=== PATIENT | male | born 1975 | race Hispanic/Latino ===

== ENCOUNTER 2024-11-18 12:06 | Inpatient (IN) | payer OTHER ==
[~2024-11-18] VITALS: Ht 180.3 cm; Wt 92.5 kg
[2024-11-18 14:07] LABS: BASOPHILS % 0.3 % (0.0-1.0); EOSINOPHILS % 0.4 % (0.0-6.0); LYMPHOCYTES % 6.0 % (18.0-39.1); MONOCYTES % 3.7 % (4.4-11.3); NEUTROPHILS % 87.4 % (38.7-80.0); RED CELL DISTRIBUTION WIDTH 11.9 % (11.7-14.4)
[2024-11-18 14:29] LABS: INR 1.0
[2024-11-18 14:37] LABS: EST GLOMERULAR FILTRATION RATE 53.0 ML/MIN (>=60)
[2024-11-18] MEDS: SODIUM CHLORIDE 0.9% 1000ML 1,000 ML IV STA ×2 (15:23)
[2024-11-18] MEDS: Vancomycin IV 1 GM in SODIUM CHLORIDE 0.9% 250ML 250 ML IV ONE (15:24)
[2024-11-18 15:30] LABS: LYMPHOCYTES % (MANUAL) 6 % (19-48); MONOCYTES % (MANUAL) 2 % (3.4-9.0); MYELOCYTES % (MANUAL) 1 % (0-0); NEUTROPHILS % (MANUAL) 91 % (40-74); PLATELET ESTIMATE ADEQUATE; PLATELET MORPHOLOGY COMMENT NORMAL; RBC MORPHOLOGY COMMENT NORMAL
[2024-11-18] MEDS: KETOROLAC TROMETHAMINE 30 MG/ML VIAL IV STA (15:38)
[2024-11-18] MEDS: ENOXAPARIN SOD INJ 40 MG/0.4 ML SYR SC SCH (17:00)
[2024-11-18] MEDS ORDERED: POTASSIUM CHLORIDE 20 MEQ TAB CR PO PRN (17:00)
[2024-11-18] MEDS ORDERED: HYDRALAZINE HCL 20 MG/ML VIAL IV PRN (17:00)
[2024-11-18] MEDS ORDERED: LIDOCAINE 4% PATCH TP PRN (17:00)
[2024-11-18] MEDS ORDERED: MELATONIN 5 MG TABLET PO PRN (17:00)
[2024-11-18] MEDS ORDERED: SIMETHICONE 80 MG CHEW PO PRN (17:00)
[2024-11-18] MEDS ORDERED: ALBUTEROL/IPRATROPIUM 3 ML NEB NEB PRN (17:00)
[2024-11-18] MEDS ORDERED: DIPHENHYDRAMINE HCL 25 MG CAP PO PRN (17:00)
[2024-11-18] MEDS ORDERED: DOCUSATE SODIUM 100 MG CAP PO PRN (17:00)
[2024-11-18] MEDS ORDERED: DEXTROSE 50% SYRINGE 50 ML IV PRN (17:00)
[2024-11-18] MEDS ORDERED: ONDANSETRON HCL INJ 2MG/ML 2ML 2 MG/ML VIAL IV PRN ×2 (17:00)
[2024-11-18 18:14] LABS: LEUKOCYTE ESTERASE ,URINE NEGATIVE (NEGATIVE)
[2024-11-18 18:15] LABS: PROTEIN,URINE DIPSTICK 1+ (NEGATIVE); URINE UROBILINOGEN 0.2 mg/dL (0.2 - 1)
[2024-11-18] MEDS: Doxycycline IV 100 MG in SODIUM CHLORIDE 0.9% 100 ML IV SCH (18:25)
[2024-11-18] MEDS: SODIUM CHLORIDE 0.9% 1000ML 1,000 ML IV SCH (18:25)
[2024-11-18] MEDS: ACETAMINOPHEN 325 MG TAB PO PRN (18:43)
[2024-11-18 19:18] LABS: INFLUENZA A NAA NEGATIVE (NEGATIVE)
[2024-11-18 19:19] LABS: INFLUENZA B NAA NEGATIVE (NEGATIVE)
[2024-11-18 19:22] VITALS: PULSE 89; RESP 16
[2024-11-18 19:29] LABS: HIV 1&2 AB SCREEN NON-REACTIVE (NONREACTIVE); HIV- 1 P24 AG SCREEN NON-REACTIVE (NONREACTIVE)
[2024-11-18 19:48] VITALS: TEMP 100.3
[2024-11-18 20:00] VITALS: BP 119/70; PULSE 82; RESP 18; TEMP 100.3; O2SAT 99
[2024-11-18 20:30] VITALS: BP 119/70; PULSE 82; RESP 18; TEMP 100.3; O2SAT 99
[2024-11-18 21:00] VITALS: BP 119/70; PULSE 82; RESP 18; TEMP 100.3; O2SAT 99
[2024-11-19] VITALS (10 sets, daily range): BP systolic 125–158; BP diastolic 68–98; PULSE 77–107; RESP 18–20; TEMP 98.4–102.5; O2SAT 96–100
[2024-11-19 06:21] LABS: BASOPHILS % 0.5 % (0.0-1.0); EOSINOPHILS % 0.2 % (0.0-6.0); LYMPHOCYTES % 5.6 % (18.0-39.1); MONOCYTES % 4.6 % (4.4-11.3); NEUTROPHILS % 87.0 % (38.7-80.0); RED CELL DISTRIBUTION WIDTH 11.9 % (11.7-14.4)
[2024-11-19 06:55] LABS: EST GLOMERULAR FILTRATION RATE 60.0 ML/MIN (>=60); PHOSPHORUS 1.9 MG/DL (2.3-4.7)
[2024-11-19 07:10] LABS: CHOL/HDL RATIO 4.3 (3.9-4.7); LDL CHOLESTEROL 43.0 MG/DL (60-130)
[2024-11-19] MEDS: PANTOPRAZOLE SOD 40 MG TABEC PO SCH (09:42)
[2024-11-19 11:22] LABS: LYMPHOCYTES % (MANUAL) 6 % (19-48); MONOCYTES % (MANUAL) 6 % (3.4-9.0); NEUTROPHILS % (MANUAL) 88 % (40-74); PLATELET ESTIMATE ADEQUATE; PLATELET MORPHOLOGY COMMENT NORMAL
[2024-11-19] MEDS: BENZONATATE 100 MG CAP PO PRN (15:33)
[2024-11-19] MEDS: POTASSIUM PHOSPHATE 15 MM in SODIUM CHLORIDE 0.9% 250ML 250 ML IV ONE ×2 (18:05→22:09)
[2024-11-19] MEDS: CHLORASEPTIC SPRAY 177 ML BTL MM PRN (21:48)
[2024-11-20] VITALS (10 sets, daily range): BP systolic 110–157; BP diastolic 65–94; PULSE 75–114; RESP 18–20; TEMP 97.9–103.1; O2SAT 97–100
[2024-11-20 05:53] LABS: BASOPHILS % 0.3 % (0.0-1.0); EOSINOPHILS % 0.2 % (0.0-6.0); LYMPHOCYTES % 6.9 % (18.0-39.1); MONOCYTES % 5.8 % (4.4-11.3); NEUTROPHILS % 83.7 % (38.7-80.0); RED CELL DISTRIBUTION WIDTH 12.0 % (11.7-14.4)
[2024-11-20 06:07] LABS: EST GLOMERULAR FILTRATION RATE 63.0 ML/MIN (>=60); PHOSPHORUS 3.4 MG/DL (2.3-4.7)
[2024-11-20 12:27] LABS: LYMPHOCYTES % (MANUAL) 4 % (19-48); MONOCYTES % (MANUAL) 5 % (3.4-9.0); NEUTROPHILS % (MANUAL) 91 % (40-74); PLATELET ESTIMATE ADEQUATE; PLATELET MORPHOLOGY COMMENT NORMAL; RBC MORPHOLOGY COMMENT NORMAL
[2024-11-20 13:32] LABS: CREATININE,URINE RANDOM 128.31 mg/dL (63-166); EST GLOMERULAR FILTRATION RATE 66.0 ML/MIN (>=60); TOTAL PROTEIN, URINE 67.3 mg/dL (1-14)
[2024-11-20 20:43] LABS: CHOL/HDL RATIO 3.4 (3.9-4.7); LDL CHOLESTEROL 45.0 MG/DL (60-130)
[2024-11-20 21:21] LABS: T3 UPTAKE 33.12 % (22.5-37.0)
[2024-11-20] MEDS: METHYLPREDNISOLONE SOD SUCC 125 MG/2ML VIAL IV SCH (21:30)
[2024-11-21] VITALS (9 sets, daily range): BP systolic 110–137; BP diastolic 65–94; PULSE 73–99; RESP 18–22; TEMP 95.7–102.4; O2SAT 95–100
[2024-11-21] MEDS ORDERED: ACETAMINOPHEN 325 MG TAB PO PRN (00:45)
[2024-11-21 01:08] LABS: RHEUMATOID FACTOR 12.0 IU/mL (<14.0)
[2024-11-21] MEDS: IBUPROFEN 600 MG TAB PO PRN (03:28)
[2024-11-21 08:38] LABS: CYCLIC CITRULLINATED PEPTID AB 5.0 units (0-19)
[2024-11-21 08:39] LABS: CMV IGG ANTIBODY <0.60 U/mL (0.00-0.59)
[2024-11-21] MEDS: CEFTRIAXONE 2 GM in SODIUM CHLORIDE 0.9% 100 ML IV SCH (09:28)
[2024-11-21 13:01] LABS: RED CELL DISTRIBUTION WIDTH 12.1 % (11.7-14.4)
[2024-11-21 13:21] LABS: EST GLOMERULAR FILTRATION RATE 76.0 ML/MIN (>=60)
[2024-11-21 14:24] LABS: LYMPHOCYTES % (MANUAL) 3 % (19-48); MONOCYTES % (MANUAL) 2 % (3.4-9.0); NEUTROPHILS % (MANUAL) 95 % (40-74); PLATELET ESTIMATE ADEQUATE; PLATELET MORPHOLOGY COMMENT FEW GIANT; RBC MORPHOLOGY COMMENT NORMAL
[2024-11-21 16:10] LABS: COMPLEMENT C3 139 mg/dL (82-167)
[2024-11-21 17:07] LABS: COMPLEMENT C4 23 mg/dL (12-38)
[2024-11-21 19:13] LABS: LEUKOCYTE ESTERASE ,URINE NEGATIVE (NEGATIVE); PROTEIN,URINE DIPSTICK 1+ (NEGATIVE)
[2024-11-21 19:14] LABS: URINE UROBILINOGEN 0.2 mg/dL (0.2 - 1)
[2024-11-22 18:21] LABS: CMV IGM ANTIBODY <30.0 AU/mL (0.0-29.9)
[2024-11-22 18:35] LABS: TOXOPLASMA IGG ANTIBODY <3.0; TOXOPLASMA IGM ANTIBODY <3.0
[2024-11-23 06:05] LABS: ANTI GLOMERULAR BASMENT MEM <0.2 units (0.0-0.9)
[2024-11-23 06:06] LABS: MYCOPLASMA PNEUMO IGG 454 U/mL (0-99); MYCOPLASMA PNEUMO IGM <770 U/mL (0-769)
[2024-11-23 13:12] LABS: HENSELAE IGG SCREEN Negative titer (Neg:<1:320); HENSELAE IGM SCREEN Negative titer (Neg:<1:100)
[2024-11-23 15:13] LABS: cANCA TITER <1:20 titer (Neg:<1:20)
[2024-11-23 15:32] LABS: ATYPICAL pANCA TITER <1:20 titer (Neg:<1:20); pANCA TITER <1:20 titer (Neg:<1:20)
[2024-11-23 15:33] LABS: JO-1 ANTIBODY <0.2 AI (0.0-0.9)
[2024-11-24 09:34] LABS: PROTEINASE-3 ANTIBODY <0.2 units (0.0-0.9)
[2024-11-25 11:05] LABS: HEPATITIS A ANTIBODY IGM (P) Negative; HEPATITIS B CORE IGM (P) Negative; HEPATITIS B SURFACE AG (P) Negative
[2024-11-29 07:42] LABS: CHLAMYDOPHILA PSITTACI IGM <1:10
[2024-12-06 08:05] LABS: ANTI-SM 5
[2024-12-06 08:07] LABS: CHLAMYDIA TRACHOMATIS IGM <0.8
== END 2024-11-21 23:19 | disposition short-term general hospital (02) | DRG 871 ==
LOC: ER 13:56 → ERHOLD 17:04 → MED/SURG2 20:16
PROVIDERS: ADMIT Internal Medicine; ATTEND Internal Medicine
PROC: 3E0333Z Introduction of Anti-inflammatory into Peripheral Vein, Percutaneous Approach (ICD-10-PCS; principal; 2024-11-18)
DX: A41.9 Sepsis, unspecified organism (principal); J69.0 Pneumonitis due to inhalation of food and vomit; N17.9 Acute kidney failure, unspecified; E83.39 Other disorders of phosphorus metabolism; E11.9 Type 2 diabetes mellitus without complications; R11.2 Nausea with vomiting, unspecified; E86.0 Dehydration; I10 Essential (primary) hypertension; R31.29 Other microscopic hematuria; M70.42 Prepatellar bursitis, left knee; R53.81 Other malaise; Z88.8 Allergy status to other drugs, medicaments and biological substances
CPT/HCPCS: 36415; 70450; 70486; 71250; 74176; 80048; 80053; 80061; 81001; 82550; 82570; 82728; 83036; 83520; 83605; 83735; 84100; 84156; 84436; 84443; 84479; 84484; 84550; 85007; 85025; 85027; 85384; 85610; 85730; 86021; 86039; 86060; 86140; 86160; 86162; 86200; 86225; 86235; 86431; 86611; 86631; 86644; 86645; 86665; 86738; 86777; 86778; 87040; 87086; 87390; 87449; 93005; 93306; 94799; 99284; G0433; G0435; J0696; J1650; J1885; J2470; J2543; J2919; J3373; J7030; J7050